=== PATIENT | female | born 1960 | race Two or more races ===

== ENCOUNTER 2020-01-07 07:38 | Outpatient (CLI) | payer OTHER | END 2020-01-07 07:44 | disposition home or self-care (01) | LOC: SONOGRAMA 07:38 → MAMO-SONO 08:15 | PROVIDERS: ATTEND Podiatrist Foot Surgery | DX: M72.2 Plantar fascial fibromatosis (principal); M71.50 Other bursitis, not elsewhere classified, unspecified site ==